=== PATIENT | female | born 1960 | race Caucasian/White ===

== ENCOUNTER 2023-09-08 21:36 | Inpatient (IN) | payer OTHER, SELFPAY ==
[2023-09-08 17:51] VITALS: BP 145/76
[2023-09-08 18:09] LABS: Hematocrit 35.8 % (37.0-47.0); Hemoglobin 12.1 g/dL (12.0-16.0); Mean Corp Hgb Conc. 33.8 g/dL (33.0-37.0); Mean Corpuscular Hgb 27.4 pg (27.0-31.0); Mean Corpuscular Volume 81.2 fL (81.0-99.0); Mean Platelet Volume 8.8 fL (7.4-10.4); Platelet Count 323 10^3/uL (130-400); Red Blood Cell Count 4.41 10^6/uL (4.20-5.40); Red Cell Dist. Width 14.3 % (11.5-14.5); White Blood Cell Count 15.8 10^3/uL (4.8-10.8)
[2023-09-08 18:24] LABS: ALT (SGPT) 30 U/L (0-35); AST (SGOT) 29 U/L (14-36); Albumin 4.2 g/dl (3.5-5.0); Alkaline Phosphatase 95 U/L (38-126); Blood Urea Nitrogen 54 mg/dl (7-17); Calcium 9.7 mg/dl (8.4-10.2); Carbon Dioxide 26 mmol/L (22-30); Chloride 97 mmol/L (98-107); Glucose 424 mg/dl (70-99); Potassium 4.4 mmol/L (3.5-5.1); Sodium 134 mmol/L (135-145); Total Bilirubin 0.4 mg/dl (0.2-1.3); Total Protein 6.8 g/dl (6.3-8.2); eGFR 38.67
[2023-09-08 18:25] LABS: Lipase 849 U/L (23-300)
[2023-09-08 18:26] VITALS: BMI 23.0
[2023-09-08 18:40] LABS: Lactic Acid 0.7 mmol/L (0.7-2.0)
[2023-09-08] MEDS: OFIRMEV 100 IV (18:46)
[2023-09-08] MEDS: MORPHINE SULFATE 4 MG IV (19:22)
[2023-09-08] MEDS: ZOFRAN 4 MG IV ×2 (19:22→23:01)
--- NOTE | 2023-09-08 19:44 | ED.GENMED ---
History of Present Illness
General
Chief Complaint: Abdominal Pain
Source: patient
Exam Limitations: none
Time Seen by Provider: 09/08/23 17:52
Nursing documentation reviewed up to this point in time: agreed with
Travel History
Have you had any contact with someone who has COVID-19?: No
Do you have any symptoms of coronavirus? Fever > 100 degrees, chills, cough, shortness of breath, sore throat, loss of taste or smell, muscle aches, or headache?: No
History of Present Illness
History of Present Illness:
Patient to ED with sudden onset of severe abdominal pain, abdominal distention. States she was unable to get self home, called EMS from side of road. New to this ED. Denies fever/chills. +nausea, no vomiting, no diarrhea
Past History
Past History
ED Past Medical History: HTN, Hypercholesterolemia, IDDM and Psychiatric (anxiety, deptression)
ED Past Surgical History: Appendectomy, Orthopedic (back surgery, neck surgery, bilateral carpal tunnel, shoulder ) and Other (Lap band)
Social History
Tobacco: Non-smoker
Alcohol: None
Drug: None
Review of Systems
Review of Systems
Allergies reviewed?: Yes
All Other Systems: ROS reviewed and negative except as documented in HPI and ROS
Constitutional: Reports no symptoms
EENT: Reports no symptoms
Respiratory: Reports no symptoms
Cardiac: Reports no symptoms
ABD/GI: Reports abdominal pain and nausea
: Reports no symptoms
Musculoskeletal: Reports no symptoms
Skin: Reports no symptoms
Neurological: Reports no symptoms
Psychiatric: Reports no symptoms
Phy Exam
General Physical Exam
General Presentation: moderate distress
General age: appears stated age
General Skin: warm and dry
General Habitus: normal
General Mental: alert, anxious and tearful
Cardiovascular Exam
Cardiovascular Exam: regular rate/rhythm and no edema
Pulmonary Exam
Pulmonary Exam: lungs clear and no respiratory distress
Gastrointestinal Exam
Gastrointestinal Exam: no pulsatile mass, no cva tenderness, distended, guarding and tender
Palpation: generalized: Severe tenderness
Musculoskeletal Exam
Musculoskeletal Exam: full ROM
Skin Exam
Skin Exam: normal color, warm/dry and no rash
Psychiatric Exam
Psychiatric Exam: normal mood/affect
Course
Orders/Labs/Results
Orders:
Orders
09/08/23 18:00
B-Hydroxybutyrate Urgent
Complete Blood Count/No Diff Urgent
Comprehensive Metabolic Panel Urgent
Lipase Urgent
09/08/23 18:20
Urinalysis Reflex To Culture Urgent
09/08/23 18:22
Lactic Acid Urgent
09/08/23 18:34
CT Abd/pel Without Iv Or Oral Urgent
Comment:
Reason For Exam: diffuse abdominal pain
09/08/23 18:45
Acetaminophen 1000MG/100Ml [Ofirmev] 1,000 mg in 100 ml .ROUTE .STK-MED
Acetaminophen 1000MG/100Ml [Ofirmev] 1,000 mg in 100 ml IV ONCE
Acetaminophen IV Indication:: ED Narcotic Naive Pt-ONCE
09/08/23 19:08
Morphine Sulfate 4 mg IV NOW STA
Ondansetron Injectable [Zofran] 4 mg IV NOW STA
09/08/23 20:41
Morphine Sulfate 2 mg IV NOW STA
09/08/23 20:50
EKG [Electrocardiogram (*1)] Stat
Reason for Study: QTc Monitoring
09/08/23 20:53
Admit/Transfer Patient As Directed
Co-Sign Provider:
Level of Care: Inpatient admission
Assign to:: Medical/Surgical
Physician / Group: jenn
Diagnosis: ileus
Reason for Hospitalization: ileus
Expected length of stay greater than two midnights?: Yes
ELOS- Estimated Length of Stay in days: 3
I certify the patient meets the requirements for IP care: Yes
09/08/23 21:02
Code Status As Directed
Resuscitation Status: Full Code
Abnormal Lab Results
09/08/23
18:00
WBC 15.8 H 10^3/uL
(4.8-10.8)
Hct 35.8 L %
(37.0-47.0)
Sodium 134 L mmol/L
(135-145)
Chloride 97 L mmol/L
(98-107)
BUN 54 H mg/dl
(7-17)
Creatinine 1.5 H mg/dL
(0.6-1.0)
Glucose 424 H mg/dl
(70-99)
Lipase 849 H U/L
(23-300)
09/08/23 18:00
09/08/23 18:00
Vital Signs
Initial and Last Documented VS:
Initial Vital Signs
Temp Pulse Resp BP Pulse Ox
98.4 F 95 18 145/76 97
09/08/23 17:51 09/08/23 17:51 09/08/23 17:51 09/08/23 17:51 09/08/23 17:51
Last Documented Vital Signs
Temp Pulse Resp BP Pulse Ox
98.4 F 95 18 145/76 97
09/08/23 17:51 09/08/23 17:51 09/08/23 17:51 09/08/23 17:51 09/08/23 17:51
*Radiology
Radiology exam reviewed: radiology read reviewed
*Pulse Oximetry
Patient hypoxic: no
*Critical Care Note
Total Time (30-74mins, 75-104mins- exclusive of procedures): Not Applicable
ED Attending Note
-
Portions of this chart may have been created with voice recognition software.� Occasional wrong word or��sound alike� substitutions may have occurred due to the inherent limitations of voice recognition software.
Discharge Plan
Departure
Patient Disposition: Admit
Date of Disposition: 09/08/23
Time of Disposition: 19:49
Presentation/result/management discussed w/ accepting MD/DO: Hospitalist
Condition: Fair
Covid-19: Not Applicable
Discharge Problem:
Ileus
Instructions: Abdominal Pain
Prescriptions:
No Action
furosemide 40 mg tablet
20 - 40 mg PO DAILY PRN (Reason: swelling)
atorvastatin 80 mg tablet
80 mg PO DAILY
venlafaxine 75 mg capsule,extended release 24hr
225 mg PO DAILY
aspirin 81 mg Tablet,Delayed Release (Dr/Ec)
81 mg PO DAILY
gabapentin 300 mg capsule
300 mg PO DAILY
losartan 100 mg tablet
100 mg PO DAILY
insulin aspart U-100 [Novolog FlexPen U-100 Insulin] 100 unit/mL (3 mL) insulin pen
3 unit SC AC
insulin degludec [Tresiba FlexTouch U-100] 100 unit/mL (3 mL) insulin pen
11 unit SC HS
Mounjaro 2.5 mg/0.5 mL pen injector
2.5 mg SC JUAN
fenofibrate 160 mg Tablet
160 mg PO DAILY
Patient Comments:
09/08/2023: Per 24hr [facility] last filled 05/23/22 and no refills
Interventions
Interventions:
*Risk Screen - Suicide Last Done: 09/08/23 18:26
*General Assessment Last Done: 09/08/23 19:18
*Neglect/Abuse Screening Last Done: 09/08/23 18:26
PU-Elzebn-Ztedxylxle Assessment Last Done: 09/08/23 18:25
Discharge Date and Time
Print Language: LITHUANIAN
--- NOTE | 2023-09-08 20:18 | HPS.HSE ---
Family Physician
-
Family Physician: Margarita Marti
Chief Complaint
-
abdominal pain
History of Present Illness
63 year old with PMH fot HTN, HLD, Dm, anxiety, depression presented to us with sudden onset of sharp abdominal pain associated with distention today. patient does have intermittent abdominal pain for past few months which resolved its own. she
vomited twice today. she had formed bowel movement yesterday. she does have occasional constipation. patient ate food from restaurant yesterday. denied fever, chills, chest pain, sob. denied CODY, dizzy or syncopal episode. denied dysuria or
hematuria.
CT with ileus/enteritis. received morphine, Zofran in the ER. admitting for further management.
Medical History
Past Medical History
Past Medical History: Reports Other
Additional Past Medical History:
HTN
HLD
DM
anxiety
depression
esophagus thickening
Past Surgical History: Reports Other
Additional Past Surgical History:
appendectomy
back/neck surgery
b/l carpel tunnel surgery
lap band
bunionectomy
shoulder tear surgery
cataract surgery
hysterectomy
Social History
Tobacco: Non-smoker
Alcohol: None
Drug: None
Living: With Family
Family History
Family History: Not pertinent
Allergies / Home Medications
Allergies reflects when Allergies were last updated in [employer].
Home Medications with original date entered in [employer]
Allergy/Medication List:
Allergies
Allergy/AdvReac Type Severity Reaction Status Date / Time
codeine Allergy Unknown Verified 09/08/23 17:48
Latex, Natural Rubber Allergy Unknown Verified 09/08/23 17:48
Home Medications
aspirin 81 mg tablet,delayed release 81 mg PO DAILY 09/08/23
atorvastatin 80 mg tablet 80 mg PO DAILY 09/08/23
fenofibrate 160 mg tablet 160 mg PO DAILY 09/08/23
furosemide 40 mg tablet 20 - 40 mg PO DAILY PRN swelling 09/08/23
gabapentin 300 mg capsule 300 mg PO DAILY 09/08/23
insulin aspart U-100 100 unit/mL (3 mL) subcutaneous pen (Novolog FlexPen U-100 Insulin aspart) 3 unit SC AC 09/08/23
insulin degludec 100 unit/mL (3 mL) subcutaneous pen (Tresiba FlexTouch U-100 insulin) 11 unit SC HS 09/08/23
losartan 100 mg tablet 100 mg PO DAILY 09/08/23
tirzepatide 2.5 mg/0.5 mL subcutaneous pen injector (Mounjaro) 2.5 mg SC JUAN 09/08/23
venlafaxine 75 mg capsule,extended release 24 hr 225 mg PO DAILY 09/08/23
Review of Systems
-
Constitutional: Reports No Symptoms
EENT: Reports No Symptoms
Respiratory: Reports No Symptoms
Cardiac: Reports No Symptoms
Abdomen/GI: Reports Abdominal Pain and Vomiting
: Reports No Symptoms
Musculoskeletal: Reports No Symptoms
Skin: Reports No Symptoms
Neurological: Reports No Symptoms
Endocrine: Reports No Symptoms
Hematologic/Lymphatic: Reports No Symptoms
Psych: Reports No Symptoms
Physical Exam
Vital Signs
Vital Signs
Temp Pulse Resp BP Pulse Ox
98.4 F 95 18 145/76 97
09/08/23 17:51 09/08/23 17:51 09/08/23 17:51 09/08/23 17:51 09/08/23 17:51
Physical Exam
General: Well Developed, Well Nourished and No Apparent Distress
HEENT: NormoCephalic, Moist mucous membranes and Atraumatic
Respiratory: Clear
Cardiac: S1/S2 and Regular Rhythm; No Murmur or Rub
GI: Soft, Tender and Distended; No Organomegaly
Rectal: Deferred by Provider
Musculoskeletal: No Clubbing, No Cyanosis and No Edema
Skin: No Rash
Neuro: AO x 3 and Nonfocal/grossly intact
Psych: Calm
Laboratory Results
-
09/08/23 18:00
09/08/23 18:00
Laboratory Results
Lactic Acid 0.7 mmol/L (0.7-2.0) 09/08/23 18:22
Total Bilirubin 0.4 mg/dl (0.2-1.3) 09/08/23 18:00
AST 29 U/L (14-36) 09/08/23 18:00
ALT 30 U/L (0-35) 09/08/23 18:00
Alkaline Phosphatase 95 U/L (38-126) 09/08/23 18:00
Lipase 849 U/L (23-300) H 09/08/23 18:00
Data Reviewed
-
CT Scan: Report Reviewed by me
Lab Data: Labs Reviewed by me
Impression/Plan
-
# Abdominal pain likely from ileus/enteritis
-Lipase to 849
-CT abdomen pelvis with impression of Findings suggesting mild nonspecific ileus/enteritis. Otherwise no significant acute abnormality identified in the abdomen or pelvis, within the limits of unenhanced CT, as described above.Lap Band noted in
place. There is moderate circumferential wall thickening of the distal thoracic esophagus, likely chronic esophagitis change. Moderate gastric distention with debris.Mild to moderate diffuse colonic stool burden may reflect constipation.
-NPO
-fluids continued
-Zofran prn for n/v
-morphine prn for pain
-GI consulted
# Leukocytosis likely stress reaction
-WBC 15.8,afebrile
-UA pending
-continue to trend
#chronic kidney disease state 3b
- creatinine 1.5 BUN 54
-monitor BMP in am
# Type 2 diabetes with hyperglycemia
-Glucose 424
-sliding scale
-Lantus 11units now
#HLD
-statin and fenofibrate continued
#type 2 Dm with hyperglycemia
-blood sugar elevated in 400's
-insulin sliding scale
-Lantus 11 units now
#essential htn
-BP stable in ER
-losartan continued
#depression
-venlafaxine continued
#DVT prophylaxis
-scd
#CODE status
-full code
[2023-09-08] MEDS: MORPHINE SULFATE 2 MG IV ×2 (20:47→23:00)
[2023-09-08 21:30] VITALS: BP 141/86
--- NOTE | 2023-09-08 21:34 | W.PN.UPDATE ---
Update Note
Progress Note Update
This is an addendum to the history and physical written by RODOLFO Alvarado on 09/08/2023.
Patient seen and examined independently with CORPORATE LEGAL INTERN. 63-year-old female past medical history gastric lap band 14 years ago, appendectomy a year ago, hysterectomy, diabetes, hypertension, hyperlipidemia, anxiety/depression, chronic kidney disease with
baseline creatinine of 1.5-1.6 presenting with severe abdominal pain particularly in the epigastric region and distention starting today with 2 episodes of vomiting. She has had intermittent abdominal pain for past few weeks. She did eat at a
restaurant yesterday. No sick contacts. She had a bowel movement yesterday but typically constipated with 1 bowel movement a week.
CT abdomen pelvis shows mild nonspecific ileus/enteritis. Lap-Band noted in place. There is moderate circumferential wall thickening of the distal thoracic esophagus with chronic esophagitis. There is moderate gastric distention with debris.
Mild to moderate diffuse colonic stool burden may reflect constipation.
N.p.o., IV fluids, Zofran, morphine for pain as needed. IV Protonix 40 twice daily. Start MiraLAX to prevent constipation. GI consulted. Bladder scan protocol as patient has not urinated in 5 hours. Continue 11 units Lantus, insulin sliding
scale.
[2023-09-08 22:01] LABS: Glucose - Point of Care 350 mg/dl (70-99)
[2023-09-08 22:11] VITALS: BP 148/88; BMI 26.6
[2023-09-08] MEDS: NSS 1000 IV (23:00)
--- NOTE | 2023-09-08 23:00 | PTCARENOTE ---
Patient admitted to room 410-2, ambulatory from stretcher to bed.. Patient is NPO. Abdomen distended, round and full. C/o abdominal pain of an '8'. Medicated with morphine and zofran IV as ordered prn. IVF infusing. Patient oriented to unit.
Instructed to ring for assistance first time out of bed, call griffin in reach.
[2023-09-08] MEDS: LANTUS 0.110000000000000001 UNITS SC (23:16)
[2023-09-09] MEDS: MORPHINE SULFATE 2 MG IV ×4 (05:00→23:42)
[2023-09-09] MEDS: ZOFRAN 4 MG IV (05:01)
[2023-09-09 05:55] LABS: Glucose - Point of Care 208 mg/dl (70-99)
[2023-09-09] MEDS: NOVOLOG FLEXPEN-MODERATE RESISTANCE 3 UNITS SC (06:15)
[2023-09-09 06:22] LABS: Urine Albumin Negative (Neg - Trace); Urine Bilirubin Negative (Negative); Urine Character Clear (Clear); Urine Color Yellow; Urine Glucose 1+ (Negative); Urine Ketone Negative (Negative); Urine Leukocyte 2+ (Negative); Urine Nitrite Negative (Negative); Urine Occult Blood Negative (Negative); Urine Specific Gravity 1.015 (<1.030); Urine Urobilinogen Negative (Neg - 1+)
[2023-09-09 06:43] LABS: Urine Bacteria Moderate (Negative); Urine White Cell 26-30 /HPF (0-5)
[2023-09-09 07:30] VITALS: BP 131/75
[2023-09-09 07:54] LABS: Hematocrit 34.3 % (37.0-47.0); Hemoglobin 11.1 g/dL (12.0-16.0); Mean Corp Hgb Conc. 32.4 g/dL (33.0-37.0); Mean Corpuscular Hgb 26.9 pg (27.0-31.0); Mean Corpuscular Volume 83.3 fL (81.0-99.0); Mean Platelet Volume 8.8 fL (7.4-10.4); Platelet Count 287 10^3/uL (130-400); Red Blood Cell Count 4.12 10^6/uL (4.20-5.40); Red Cell Dist. Width 14.6 % (11.5-14.5); White Blood Cell Count 13.8 10^3/uL (4.8-10.8)
[2023-09-09] MEDS: NEURONTIN 300 MG PO (07:54)
[2023-09-09] MEDS: COZAAR 100 MG PO (07:54)
[2023-09-09] MEDS: LIPITOR 80 MG PO (07:54)
[2023-09-09] MEDS: TRICOR 145 MG PO (07:55)
[2023-09-09] MEDS: ASPIR LOW (ENTERIC COATED) PO (08:11)
[2023-09-09] MEDS: HEPARIN SC (08:12)
[2023-09-09 08:23] LABS: Blood Urea Nitrogen 44 mg/dl (7-17); Calcium 9.6 mg/dl (8.4-10.2); Carbon Dioxide 32 mmol/L (22-30); Chloride 104 mmol/L (98-107); Estimated Creatinine Clearance 37 ml/min; Glucose 202 mg/dl (70-99); Lipase 1631 U/L (23-300); Potassium 4.9 mmol/L (3.5-5.1); Sodium 140 mmol/L (135-145); eGFR 50.55
[2023-09-09] MEDS: EFFEXOR XR 225 MG PO (09:10)
[2023-09-09] MEDS: TYLENOL 650 MG PO (09:10)
[2023-09-09 09:22] LABS: Glycohemoglobin (HgbA1c) 9.4 % (4.0-5.6)
[2023-09-09] MEDS: NSS 1000 IV ×2 (10:35→21:41)
[2023-09-09 10:51] LABS: Glucose - Point of Care 165 mg/dl (70-99)
--- NOTE | 2023-09-09 11:42 | W.PN.HOSP.TC ---
Today's Communication/Plan
-
see plan
Assessment / Plan
Assessment / Plan
63 year old with PMH fot HTN, HLD, Dm, anxiety, depression presented to us with sudden onset of sharp abdominal pain associated with distention
CT A/P
IMPRESSION:
1. Findings suggesting mild nonspecific ileus/enteritis. Otherwise no significant acute abnormality identified in the abdomen or pelvis, within the limits of unenhanced CT, as described above.
2. Lap Band noted in place. There is moderate circumferential wall thickening of the distal thoracic esophagus, likely chronic esophagitis change. Moderate gastric distention with debris.
3. Mild to moderate diffuse colonic stool burden may reflect constipation.
Pancreatitis with rising lipase
Abdominal Pain with findings of Ileus/Enteritis
-NPO
-fluids continued
-Zofran prn for n/v
-morphine prn for pain
-RUQ US to better assess for gallstones; add on liver enzymes this AM
-GI consult appreciated
Constipation
-bowel regimen
# Leukocytosis likely stress reaction
-WBC improvin today off antibiotics
#chronic kidney disease state 3b
- creatinine 1.5 BUN 54
-monitor BMP in am
# Type 2 diabetes with hyperglycemia
-Glucose 424 on admit
-continue 1/2 dose Lantus while NPO
#HLD
-statin and fenofibrate continued
#essential htn
-BP stable in ER
-losartan continued
#depression
-venlafaxine continued
#DVT prophylaxis
Hep subQ
#CODE status
-full code
Anticipated Discharge: 24 - 48 hours
Subjective/Interval History
-
Date of Service: September 09, 2023
continue to have abdominal pain
epigastric and left-sided
describes intermittent pain after eating over past month
Objective Data
-
Labs:
Laboratory Results
09/09/23
07:28
WBC 13.8 H
Hgb 11.1 L
Hct 34.3 L
Plt Count 287
Sodium 140
Potassium 4.9
Chloride 104
Carbon Dioxide 32 H
BUN 44 H
Creatinine 1.2 H
Glucose 202 H
Calcium 9.6
Vital Signs:
Vital Signs
Temp Pulse Resp BP Pulse Ox
98.3 F 78 16 131/75 96
09/09/23 07:30 09/09/23 07:54 09/09/23 07:30 09/09/23 07:54 09/09/23 07:30
I&O
09/08/23 09/09/23 09/10/23
06:59 06:59 06:59
Intake Total 550 / 550
Output Total 375 / 375
Balance 175 / 175
Review of Systems
-
History Source: Patient
All other systems: Reviewed and negative
Physical Exam
-
General: No Apparent Distress and Conversant
HEENT: PERRLA
Respiratory: Clear to Auscultation; Negative Wheezes
Cardiac: Regular Rhythm and S1/S2
GI: Other (tenderness midepigastric region, no rebound or guarding )
Musculoskeletal: No Edema
Skin: Warm and Dry; Negative Rash
Neuro: AO x 3
Psych: Calm
Data Reviewed
-
Diagnostic Radiology: Report Reviewed by me
Labs: Labs Reviewed by me
[2023-09-09 13:24] LABS: Glucose - Point of Care 138 mg/dl (70-99)
[2023-09-09] MEDS: NOVOLOG FLEXPEN-MODERATE RESISTANCE SC ×3 (13:33→23:23)
[2023-09-09] MEDS: MIRALAX 17 GRAMS PO ×3 (13:37→21:44)
[2023-09-09] MEDS: PEPCID 20 MG IV (13:41)
[2023-09-09] MEDS: NSS (PRESERVATIVE FREE) 8 ML IV (13:44)
--- NOTE | 2023-09-09 14:19 | CON.GI ---
Addendum entered and electronically signed by Winnie Lassiter DO 09/26/23 07:31:
For clarification purposes, patient was treated for ileus and enteritis, although meeting diagnostic criteria for acute pancreatitis, this was thought to be less likely.
Original Note:
Consultation
-
Date/Time Consultation Requested: 09/09/23
Date/Time Consultation Performed: 09/09/23
Requesting Provider: Dr. Rivas
Performing Provider: Dr. Lassiter
Reason for Consultation: Abdominal pain, abnormal CT scan
Medical History
Chief Complaint / HPI
Chief Complaint: abdominal pain
History of Present Illness:
Dorota is a 63-year-old female past medical history of hyperlipidemia, diabetes, hypertension, anxiety, depression, hx appendectomy, hx hysterectomy, CKD (b/l Cr. 1.5) who presented to [facility] with acute onset abdominal pain and
distention x 1 day. She also endorses 2 episodes of emesis. She denies tobacco, alcohol or illicit drug use. She denies NSAID use. Denies recent antibiotic use or sick contacts. She reports having a recent colonoscopy in [place] ([facility]).
She had an EGD at that same time, was told she has a 'narrow' esophagus. She denies any dysphagia, odynophagia or globus/regurgitation regularly, states it was just 'routine.' Reports she was given a 10 year recall for her colonoscopy. She denies
family history of GI malignancy.
Labs on arrival were significant for leukocytosis with a white count of 15.8 that improved to 13.8 today, hemoglobin 12.1 down to 11.1 today, MCV 83.3, platelets 287, BUN 44, creatinine 1.2, lipase 1631.
CT scan without IV or oral contrast shows Lap-Band in place. Moderate circumferential wall thickening of the distal thoracic esophagus. Moderate gastric distention with debris. Slightly prominent air and fluid-filled small bowel loops throughout
the abdomen. The bowel is without evidence of obstruction or adjacent laboratory changes. Mild to moderate diffuse colonic stool burden. Findings suggesting mild nonspecific ileus and enteritis.
Past Medical History
Past Medical History: HTN, Hypercholesterolemia, NIDDM and Psychiatric
Past Surgical History: Appendectomy and Gynecological
Social History
Tobacco: Non-Smoker
Alcohol: None
Drug: None
Living: Alone
Employment: Employed
Family History
Family History: Reviewed & Not Pertinent
Allergies / Home Medications
Allergy/AdvReac Type Severity Reaction Status Date / Time
codeine Allergy Unknown Verified 09/08/23 17:48
Latex, Natural Rubber Allergy Unknown Verified 09/08/23 17:48
�Medication �Instructions �Recorded
aspirin 81 mg tablet,delayed 81 mg PO DAILY Blood Clot 09/08/23
release Prevention/Tx
atorvastatin 80 mg tablet 80 mg PO DAILY High Cholesterol 09/08/23
fenofibrate 160 mg tablet 160 mg PO DAILY HIGH TRIGLYCERIDES 09/08/23
furosemide 40 mg tablet 20 - 40 mg PO DAILY PRN swelling 09/08/23
gabapentin 300 mg capsule 300 mg PO DAILY Pain 09/08/23
insulin aspart U-100 100 unit/mL 3 unit SC AC Diabetes 09/08/23
(3 mL) subcutaneous pen (Novolog
FlexPen U-100 Insulin aspart)
insulin degludec 100 unit/mL (3 11 unit SC HS Diabetes 09/08/23
mL) subcutaneous pen (Tresiba
FlexTouch U-100 insulin)
losartan 100 mg tablet 100 mg PO DAILY Blood Pressure 09/08/23
tirzepatide 2.5 mg/0.5 mL 2.5 mg SC JUAN Diabetes 09/08/23
subcutaneous pen injector
(Mounjaro)
venlafaxine 75 mg capsule,extended 225 mg PO DAILY Mental 09/08/23
release 24 hr Health/Anxiety
Review of Systems
-
History Source: Patient
All other systems: A 12 pt ROS was Negative except as stated above in HPI
Vital Signs
Temp Pulse Resp BP Pulse Ox
98.3 F 78 16 131/75 96
09/09/23 07:30 09/09/23 07:54 09/09/23 07:30 09/09/23 07:54 09/09/23 07:30
Physical Exam
Exam
GENERAL: In no acute distress, appears comfortable
HEENT: no scleral icterus, mucous membranes moist, OP clear
RESP: Nonlabored respirations, clear to ausculation, b/l
CV: RRR, S1/S2
ABDOMEN: +BS;soft, nondistended, tender to deep palpation in epigastric and RUQ area, ,no rebound or guarding
EXT: No LE edema, b/l
SKIN: Dry, warm
NEURO: AAOx3
Results
WBC 13.8 10^3/uL (4.8-10.8) H 09/09/23 07:28
Hgb 11.1 g/dL (12.0-16.0) L 09/09/23 07:28
Hct 34.3 % (37.0-47.0) L 09/09/23 07:28
MCV 83.3 fL (81.0-99.0) 09/09/23 07:28
Plt Count 287 10^3/uL (130-400) 09/09/23 07:28
Sodium 140 mmol/L (135-145) 09/09/23 07:28
Potassium 4.9 mmol/L (3.5-5.1) 09/09/23 07:28
Chloride 104 mmol/L (98-107) 09/09/23 07:28
Carbon Dioxide 32 mmol/L (22-30) H 09/09/23 07:28
BUN 44 mg/dl (7-17) H 09/09/23 07:28
Creatinine 1.2 mg/dL (0.6-1.0) H 09/09/23 07:28
Calcium 9.6 mg/dl (8.4-10.2) 09/09/23 07:28
Total Bilirubin 0.4 mg/dl (0.2-1.3) 09/08/23 18:00
AST 29 U/L (14-36) 09/08/23 18:00
ALT 30 U/L (0-35) 09/08/23 18:00
Alkaline Phosphatase 95 U/L (38-126) 09/08/23 18:00
Lipase 1631 U/L (23-300) H* 09/09/23 07:28
Diagnostic Image Results:
Prior GI Procedures:
EGD:
Colonoscopy:
Assessment / Plan
-
63-year-old female past medical history of hyperlipidemia, diabetes, hypertension, anxiety, depression, hx appendectomy, hx hysterectomy, CKD (b/l Cr. 1.5) admitted with acute onset abdominal pain with N/V and change in bowel habits, found to have
elevated lipase with imaging c/f enteritis/ileitis, large stool burden.
RUQ Abdominal Pain + Elevated Lipase meets clinical criteria for Acute Pancreatitis
-CT scan w/o IV or oral contrast, reports normal appearing pancreas; some of the GI findings may be due to underdistension
-Lipase elevated to 1631
-Recommend IVF @ 150 cc/hr
-Monitor BUN and Hct; BUN 54 --> 44
-Suspect pancreatitis could be causing inflammation in adjacent small bowel as well as ileus
-start bowel regimen with Miralax TID + Enema
-Clear liquids
-Analgesia, antiemetics
-f/u US-- etiology of pancreatitis unclear at this time, denies EtoH
Data Reviewed
-
CT Scan: Report Reviewed by me
-
-
Thank you for consultation and allowing me to participate in the patient's care. Please call the conductor and engineer GI physician during the after hours with any questions or concerns.
[2023-09-09 14:56] LABS: ALT (SGPT) 30 U/L (0-35); AST (SGOT) 25 U/L (14-36); Alkaline Phosphatase 86 U/L (38-126); Total Bilirubin 0.3 mg/dl (0.2-1.3)
[2023-09-09 15:15] VITALS: BP 140/71
[2023-09-09] MEDS: FLEET MINERAL OIL ENEMA 133 ML RECTAL (15:34)
--- NOTE | 2023-09-09 15:54 | CM ---
CM met with pt bedside
Pt resides a mobile home, [employer]
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
Pt denies use of DMEs
Pt notes difficulties with bills and food security
Does not have computer- hard list of resources placed in dc folder per her request
Dtr local and available for support as needed
PCP- Margarita Marti
Rx- [facility]
Discharge Disposition- home, no needs anticipated
[2023-09-09 17:59] LABS: Glucose - Point of Care 95 mg/dl (70-99)
[2023-09-09] MEDS: HEPARIN 5000 UNITS SC (19:49)
[2023-09-09] MEDS: NSS (PRESERVATIVE FREE) IV (21:44)
[2023-09-09 22:28] LABS: Glucose - Point of Care 81 mg/dl (70-99)
[2023-09-09] MEDS: LANTUS SC (22:34)
[2023-09-09 23:00] LABS: Glucose - Point of Care 103 mg/dl (70-99)
[2023-09-09 23:07] VITALS: BP 117/74
[2023-09-10] VITALS (10 sets, daily range): BP systolic 102–145; BP diastolic 60–81
--- NOTE | 2023-09-10 03:06 | DOWNTIME ---
There was a [employer] Client Disease Management Nurse Downtime on 08/13/2023 from 0100 to 08/13/2023 at 0439. Downtime documentation of patient's care, including medication administrations, has been reconciled in the electronic record per guidelines. Refer to the
patient's paper chart under the miscellaneous tab to see printed paper medication records and downtime forms.
[2023-09-10] MEDS: NSS 1000 IV (05:27)
[2023-09-10] MEDS: MORPHINE SULFATE 2 MG IV (05:38)
[2023-09-10 05:48] LABS: Glucose - Point of Care 90 mg/dl (70-99)
[2023-09-10] MEDS: NOVOLOG FLEXPEN-MODERATE RESISTANCE SC ×3 (05:59→18:27)
[2023-09-10 06:12] LABS: % Basophils 0.2 % (0-2); % Eosinophils 1.4 % (0-6); % Immature Granulocytes 0.8 % (0-0.5); % Lymphocytes 20.3 % (20.5-51.1); % Monocytes 6.9 % (1.7-9.3); % Neutrophils 70.4 % (42.2-75.2); Absolute Eosinophils 0.1 10^3/uL (0-0.7); Absolute Immature Granulocytes 0.1 10^3/uL (0-0.05); Absolute Lymphocytes 1.7 10^3/uL (1.2-3.4); Absolute Monocytes 0.6 10^3/uL (0.1-0.6); Absolute Neutrophils 5.9 10^3/uL (1.4-6.5); Hematocrit 30.5 % (37.0-47.0); Mean Corp Hgb Conc. 32.8 g/dL (33.0-37.0); Mean Corpuscular Hgb 27.3 pg (27.0-31.0); Mean Corpuscular Volume 83.3 fL (81.0-99.0); Nucleated Red Blood Cells % 0 %; Platelet Count 248 10^3/uL (130-400); Red Blood Cell Count 3.66 10^6/uL (4.20-5.40); Red Cell Dist. Width 14.6 % (11.5-14.5); White Blood Cell Count 8.4 10^3/uL (4.8-10.8)
[2023-09-10 06:37] LABS: ALT (SGPT) 24 U/L (0-35); AST (SGOT) 21 U/L (14-36); Albumin 2.9 g/dl (3.5-5.0); Alkaline Phosphatase 67 U/L (38-126); Blood Urea Nitrogen 26 mg/dl (7-17); Calcium 9.2 mg/dl (8.4-10.2); Carbon Dioxide 28 mmol/L (22-30); Chloride 109 mmol/L (98-107); Estimated Creatinine Clearance 50 ml/min; Glucose 90 mg/dl (70-99); Lipase 183 U/L (23-300); Potassium 4.8 mmol/L (3.5-5.1); Sodium 140 mmol/L (135-145); Total Bilirubin 0.4 mg/dl (0.2-1.3); Total Protein 5.3 g/dl (6.3-8.2); eGFR > 60.00
[2023-09-10] MEDS: MIRALAX 17 GRAMS PO (08:06)
[2023-09-10] MEDS: NEURONTIN 300 MG PO (08:07)
[2023-09-10] MEDS: ASPIR LOW (ENTERIC COATED) 81 MG PO (08:07)
[2023-09-10] MEDS: LIPITOR 80 MG PO (08:07)
[2023-09-10] MEDS: TRICOR 145 MG PO (08:07)
[2023-09-10] MEDS: COZAAR 100 MG PO (08:07)
[2023-09-10] MEDS: EFFEXOR XR 225 MG PO (08:08)
[2023-09-10] MEDS: HEPARIN 5000 UNITS SC ×2 (08:09→20:04)
--- NOTE | 2023-09-10 11:52 | W.PN.HOSP.TC ---
Today's Communication/Plan
-
see plan
Assessment / Plan
Assessment / Plan
63 year old with PMH fot HTN, HLD, Dm, anxiety, depression presented to us with sudden onset of sharp abdominal pain associated with distention
CT A/P
IMPRESSION:
1. Findings suggesting mild nonspecific ileus/enteritis. Otherwise no significant acute abnormality identified in the abdomen or pelvis, within the limits of unenhanced CT, as described above.
2. Lap Band noted in place. There is moderate circumferential wall thickening of the distal thoracic esophagus, likely chronic esophagitis change. Moderate gastric distention with debris.
3. Mild to moderate diffuse colonic stool burden may reflect constipation.
RUQ US
IMPRESSION:
1. No evidence of cholelithiasis, acute cholecystitis, or biliary ductal dilation.
2. Gastric band was partially visualized within the upper abdomen.
3. Pancreas was not well seen due to overlying bowel.
EGD 09/10/23
Impression: - The procedure was aborted due to copious amounts of
food in the small bowel, unable to clear.
- White specked mucosa in the esophagus. Biopsied.
- 2 cm hiatal hernia.
- A large amount of food (residue) in the stomach.
- Erythematous mucosa in the prepyloric region of the
stomach. Biopsied. Clip was placed. Clip director facilities maintenance:
[employer].
- Retained food in the duodenum.
Recommendation: - Return patient to hospital reich for ongoing care.
- Gastroparesis diet.
- Continue present medications.
- Suspect imaging findings, albeit, limited due to
lack of both PO and IV contrast as well as symptoms
are 2/2 dysmotility and gastroparesis-type picture in
setting of Mounjaro use. Small bowel inflammation seen
on imaging could be due to food stasis, unable to
fully visualize mucosa. Recommend drug holiday and
repeat EGD as outpatient.
- Await pathology results. If esophageal biopsies
return positive, recommend treatment with 14 day
course of Fluconazole.
Abdominal Pain with findings of Ileus/Enteritis
Elevated Lipase
Constipation
-appreciate GI consult
-s/p EGD with results above, findings of gastroparesis in setting of recent initiation Mounjaro
-patient ordered for gastroparesis diet
-plan for holiday from Mounjaro use
-bowel regimen
# Leukocytosis likely stress reaction
-WBC improving and now resolved today off antibiotics
#chronic kidney disease state 3b
- creatinine 1.5 BUN 54
-monitor BMP in am
# Type 2 diabetes with hyperglycemia
-Glucose 424 on admit
-left message for patient's instrument lens grinder apprentice, Dr. Lovett per patient's request
-hold Mounjaro
-continue Tresiba 11 units qhs; will increase pre-meal insulin at discharge given elevated A1c
#HLD
-statin and fenofibrate continued
#essential htn
-BP stable in ER
-losartan continued
#depression
-venlafaxine continued
#DVT prophylaxis
Hep subQ
#CODE status
-full code
Anticipated Discharge: 24 - 48 hours
Subjective/Interval History
-
Date of Service: September 10, 2023
seen post EGD
still no bowel movement
Objective Data
-
Labs:
Laboratory Results
09/10/23
05:28
WBC 8.4
Hgb 10.0 L
Hct 30.5 L
Plt Count 248
Sodium 140
Potassium 4.8
Chloride 109 H
Carbon Dioxide 28
BUN 26 H
Creatinine 0.9
Glucose 90
Calcium 9.2
Total Bilirubin 0.4
AST 21
ALT 24
Alkaline Phosphatase 67
Vital Signs:
Vital Signs
Temp Pulse Resp BP Pulse Ox
98.9 F 67 16 132/72 98
09/10/23 07:55 09/10/23 07:55 09/10/23 07:55 09/10/23 07:55 09/10/23 07:55
I&O
09/09/23 09/10/23 09/11/23
06:59 06:59 06:59
Intake Total 550 / 550 120 / 120
Output Total 375 / 375
Balance 175 / 175 120 / 120
Review of Systems
-
History Source: Patient
All other systems: Reviewed and negative
Physical Exam
-
General: No Apparent Distress
HEENT: PERRLA
Respiratory: Clear to Auscultation; Negative Wheezes
Cardiac: S1/S2
GI: Distended
Musculoskeletal: No Edema
Skin: Warm and Dry; Negative Rash
Neuro: AO x 3
Psych: Calm
Data Reviewed
-
Diagnostic Radiology: Report Reviewed by me
Labs: Labs Reviewed by me
[2023-09-10] MEDS: FLEET MINERAL OIL ENEMA RECTAL (11:55)
[2023-09-10 12:50] LABS: Glucose - Point of Care 46 mg/dl (70-99)
[2023-09-10] MEDS: DEXTROSE 50% SYRINGE 12.5 GRAMS IV (12:59)
[2023-09-10 13:27] LABS: Glucose - Point of Care 89 mg/dl (70-99)
[2023-09-10 13:54] LABS: Glucose - Point of Care 87 mg/dl (70-99)
--- NOTE | 2023-09-10 15:28 | CM ---
met with patient at bedside,egd aborted due to patient not being cleaned out,gi recs egd as op,monitoring cr,wbc 5.5 off abx.
Plan:discharge home with no needs.
[2023-09-10] MEDS: CITROMA 300 ML PO (15:53)
[2023-09-10] MEDS: MIRALAX PO ×2 (16:24→22:01)
[2023-09-10 17:51] LABS: Glucose - Point of Care 76 mg/dl (70-99)
[2023-09-10] MEDS: NOVOLOG FLEXPEN SC (18:27)
[2023-09-10 21:20] LABS: Glucose - Point of Care 125 mg/dl (70-99)
[2023-09-10] MEDS: PEPCID 20 MG IV (21:52)
[2023-09-10] MEDS: NSS (PRESERVATIVE FREE) 8 ML IV (21:52)
[2023-09-10] MEDS: LANTUS 0.0500000000000000028 UNITS SC (22:00)
[2023-09-11] MEDS: NOVOLOG FLEXPEN-MODERATE RESISTANCE SC ×2 (00:01→11:22)
[2023-09-11 01:23] LABS: Glucose - Point of Care 143 mg/dl (70-99)
[2023-09-11 05:31] LABS: Hematocrit 32.2 % (37.0-47.0); Hemoglobin 10.3 g/dL (12.0-16.0); Mean Corpuscular Volume 84.5 fL (81.0-99.0); Platelet Count 234 10^3/uL (130-400); Red Blood Cell Count 3.81 10^6/uL (4.20-5.40); Red Cell Dist. Width 14.4 % (11.5-14.5)
[2023-09-11 05:55] LABS: Blood Urea Nitrogen 23 mg/dl (7-17); Calcium 9.3 mg/dl (8.4-10.2); Carbon Dioxide 30 mmol/L (22-30); Chloride 104 mmol/L (98-107); Estimated Creatinine Clearance 50 ml/min; Glucose 238 mg/dl (70-99); Lipase 229 U/L (23-300); Potassium 4.7 mmol/L (3.5-5.1); Sodium 138 mmol/L (135-145); eGFR > 60.00
[2023-09-11 06:06] LABS: Glucose - Point of Care 240 mg/dl (70-99)
[2023-09-11] MEDS: NOVOLOG FLEXPEN-MODERATE RESISTANCE 3 UNITS SC ×2 (06:30→16:51)
[2023-09-11 07:55] VITALS: BP 131/80
[2023-09-11 07:58] LABS: Glucose - Point of Care 139 mg/dl (70-99)
[2023-09-11] MEDS: TYLENOL 650 MG PO ×2 (08:15→14:58)
[2023-09-11] MEDS: HEPARIN 5000 UNITS SC ×2 (08:17→19:49)
[2023-09-11] MEDS: EFFEXOR XR 225 MG PO (08:18)
[2023-09-11] MEDS: NEURONTIN 300 MG PO (08:18)
[2023-09-11] MEDS: LIPITOR 80 MG PO (08:19)
[2023-09-11] MEDS: ASPIR LOW (ENTERIC COATED) 81 MG PO (08:19)
[2023-09-11] MEDS: COZAAR 100 MG PO (08:19)
[2023-09-11] MEDS: TRICOR 145 MG PO (08:19)
[2023-09-11] MEDS: MIRALAX 17 GRAMS PO ×3 (08:19→21:38)
[2023-09-11] MEDS: NOVOLOG FLEXPEN 3 UNITS SC (08:20)
[2023-09-11] MEDS: FLEET MINERAL OIL ENEMA 133 ML RECTAL (10:21)
[2023-09-11 10:56] LABS: Glucose - Point of Care 59 mg/dl (70-99)
[2023-09-11] MEDS: NOVOLOG FLEXPEN SC (11:03)
[2023-09-11 11:14] LABS: Glucose - Point of Care 61 mg/dl (70-99)
[2023-09-11 11:30] LABS: Glucose - Point of Care 53 mg/dl (70-99)
[2023-09-11 11:53] LABS: Glucose - Point of Care 125 mg/dl (70-99)
--- NOTE | 2023-09-11 12:10 | PN.CDI ---
CDI
- -
CDI:
Physician Documentation Request
Admit Date: 09/08/23 21:36
Dear Doctor Evelyn,
Clinical Indicators:
Patient admitted with ileus/enteritis.
CKD 3b documented.
Cr/GFR trend:
09/08/23 09/09/23 09/10/23
18:00 07:28 05:28
Creatinine 1.5 H 1.2 H 0.9
eGFR 38.67 50.55 > 60.00
Please clarify which of the following accurately represents the patient's renal status:
SAIRA
SAIRA on CKD 3b
CKD 3b only
Other, please specify
Criteria for SAIRA*
1 Increase in serum creatinine by > or = to 0.3 mg/dL (> or = to 26.5 micromol/L) within 48 hours, OR
2 Increase in serum creatinine to > or = to 1.5 times baseline, which is known or presumed to have occurred within 7 days, OR
3 Urine volume < 0.5 nL/kg/hour for six hours
Stages of Chronic Kidney Disease*
Level Description GFR
G1 Normal or High >90
G2 Mildly decreased 60-89
G3a Mildly to moderately decreased 45-59
G3b Moderately to severely decreased 30-44
G4 Severely decreased 15-29
G5 Kidney failure <15
Use of terms such as suspected, likely, concern for, or probable (associated with a specific diagnosis that is being evaluated, monitored, or treated as if it exists) are acceptable and can be coded in the inpatient setting, when documented at the
time of discharge.
Thank you,
MACKENZIE Andrews RN
CDI Specialist
available via tiger text
Please use your independent medical judgment in providing your response.
*Source: Kidney Disease: Improving Global Outcomes (KDIGO) 2012
--- NOTE | 2023-09-11 12:13 | W.PN.HOSP.TC ---
Today's Communication/Plan
-
bowel regimen
clears
F/U further GI recs
Assessment / Plan
Assessment / Plan
63 year old with PMH fot HTN, HLD, Dm, anxiety, depression presented to us with sudden onset of sharp abdominal pain associated with distention
CT A/P
IMPRESSION:
1. Findings suggesting mild nonspecific ileus/enteritis. Otherwise no significant acute abnormality identified in the abdomen or pelvis, within the limits of unenhanced CT, as described above.
2. Lap Band noted in place. There is moderate circumferential wall thickening of the distal thoracic esophagus, likely chronic esophagitis change. Moderate gastric distention with debris.
3. Mild to moderate diffuse colonic stool burden may reflect constipation.
RUQ US
IMPRESSION:
1. No evidence of cholelithiasis, acute cholecystitis, or biliary ductal dilation.
2. Gastric band was partially visualized within the upper abdomen.
3. Pancreas was not well seen due to overlying bowel.
EGD 09/10/23
Impression: - The procedure was aborted due to copious amounts of
food in the small bowel, unable to clear.
- White specked mucosa in the esophagus. Biopsied.
- 2 cm hiatal hernia.
- A large amount of food (residue) in the stomach.
- Erythematous mucosa in the prepyloric region of the
stomach. Biopsied. Clip was placed. Clip x ray technician:
[employer].
- Retained food in the duodenum.
Recommendation: - Return patient to hospital reich for ongoing care.
- Gastroparesis diet.
- Continue present medications.
- Suspect imaging findings, albeit, limited due to
lack of both PO and IV contrast as well as symptoms
are 2/2 dysmotility and gastroparesis-type picture in
setting of Mounjaro use. Small bowel inflammation seen
on imaging could be due to food stasis, unable to
fully visualize mucosa. Recommend drug holiday and
repeat EGD as outpatient.
- Await pathology results. If esophageal biopsies
return positive, recommend treatment with 14 day
course of Fluconazole.
Abdominal Pain with findings of Ileus/Enteritis
Elevated Lipase
Constipation
-appreciate GI consult
-s/p EGD with results above, findings of gastroparesis in setting of recent initiation Mounjaro
-patient ordered for gastroparesis diet
-plan for holiday from Mounjaro use
-bowel regimen
-persistent pain will place on clears
-F/U further GI recs
# Leukocytosis likely stress reaction
-WBC resolved off antibiotics
#chronic kidney disease state 3b
- creatinine 1.5 BUN 54
-monitor BMP in am
# Type 2 diabetes with hyperglycemia
-Glucose 424 on admit
-left message for patient's associate professor of chemistry, Dr. Lovett per patient's request
-hold Mounjaro
-lantus lower dosing qhs
-hypoglycemic this morning - stop standing aspart
#HLD
-statin and fenofibrate continued
#essential htn
-BP stable in ER
-losartan continued
#depression
-venlafaxine continued
#DVT prophylaxis
Hep subQ
#CODE status
-full code
Anticipated Discharge: 24 - 48 hours
Subjective/Interval History
-
Date of Service: September 11, 2023
she is continuing to have pain
states 15 minutes after eating
Objective Data
-
Labs:
Laboratory Results
09/11/23
05:03
WBC 7.0
Hgb 10.3 L
Hct 32.2 L
Plt Count 234
Sodium 138
Potassium 4.7
Chloride 104
Carbon Dioxide 30
BUN 23 H
Creatinine 0.9
Glucose 238 H
Calcium 9.3
Vital Signs:
Vital Signs
Temp Pulse Resp BP Pulse Ox
98.1 F 65 16 131/80 100
09/11/23 07:55 09/11/23 07:55 09/11/23 07:55 09/11/23 07:55 09/11/23 07:55
I&O
09/10/23 09/11/23 09/12/23
06:59 06:59 06:59
Intake Total 120 / 120 480 / 480
Balance 120 / 120 480 / 480
Review of Systems
-
History Source: Patient
All other systems: Reviewed and negative
Physical Exam
-
General: No Apparent Distress
HEENT: PERRLA
Respiratory: Clear to Auscultation; Negative Wheezes
Cardiac: S1/S2
GI: Distended
Musculoskeletal: No Edema
Skin: Warm and Dry; Negative Rash
Neuro: AO x 3
Psych: Calm
Data Reviewed
-
Diagnostic Radiology: Report Reviewed by me
Labs: Labs Reviewed by me
[2023-09-11] MEDS: PROTONIX IV 40 MG IV ×2 (12:50→19:50)
[2023-09-11] MEDS: NSS (PRESERVATIVE FREE) 10 ML IV ×2 (12:50→19:50)
--- NOTE | 2023-09-11 13:12 | PTCARENOTE ---
Pt ambulating in the hallway, this RN noticed pt was a little unsteady and leaning against wall, Went to assess pt and pt felt like she was going to fall over, able to get back to room and in bed with staff member on each side. Pt vitals assessed
WNL. Pt said she didnt feel dizzy but ' my legs gave out' pt reports this happens at home. Blood sugar checked with results of 59. Blood sugar reevaluated per protocol and finally came up to 125. Pt conversive and talkative throughout whole
hypoglycemic event, updated, plan of care continues.
[2023-09-11 14:36] LABS: Glucose - Point of Care 290 mg/dl (70-99)
[2023-09-11 15:54] VITALS: BP 135/74
[2023-09-11 16:34] LABS: Glucose - Point of Care 275 mg/dl (70-99)
[2023-09-11 19:49] LABS: Glucose - Point of Care 273 mg/dl (70-99)
[2023-09-11 21:35] LABS: Glucose - Point of Care 209 mg/dl (70-99)
[2023-09-11] MEDS: PEPCID 20 MG IV (21:38)
[2023-09-11] MEDS: NSS (PRESERVATIVE FREE) 8 ML IV (21:38)
[2023-09-11] MEDS: LANTUS 0.0500000000000000028 UNITS SC (21:38)
[2023-09-11 23:44] VITALS: BP 135/73
[2023-09-12 03:07] LABS: Glucose - Point of Care 174 mg/dl (70-99)
--- NOTE | 2023-09-12 05:17 | PTCARENOTE ---
Pt came out to hallway and expressed frustration with continued hospitalization and not improving and states that she wants to be discharged today. Encouraged pt to discuss concerns with physician in am.
[2023-09-12 05:24] LABS: Hemoglobin 10.2 g/dL (12.0-16.0); Mean Corp Hgb Conc. 32.9 g/dL (33.0-37.0); Mean Corpuscular Hgb 26.9 pg (27.0-31.0); Mean Corpuscular Volume 81.8 fL (81.0-99.0); Mean Platelet Volume 8.6 fL (7.4-10.4); Platelet Count 232 10^3/uL (130-400); Red Blood Cell Count 3.79 10^6/uL (4.20-5.40); Red Cell Dist. Width 14.3 % (11.5-14.5); White Blood Cell Count 6.6 10^3/uL (4.8-10.8)
[2023-09-12 06:05] LABS: Blood Urea Nitrogen 20 mg/dl (7-17); Calcium 9.8 mg/dl (8.4-10.2); Carbon Dioxide 31 mmol/L (22-30); Chloride 105 mmol/L (98-107); Estimated Creatinine Clearance 45 ml/min; Glucose 159 mg/dl (70-99); Potassium 5.3 mmol/L (3.5-5.1); Sodium 139 mmol/L (135-145); eGFR > 60.00
[2023-09-12 07:40] VITALS: BP 141/71
[2023-09-12 07:49] LABS: Glucose - Point of Care 156 mg/dl (70-99)
[2023-09-12 08:16] VITALS: BP 141/71
[2023-09-12] MEDS: NOVOLOG FLEXPEN-MODERATE RESISTANCE 1 UNITS SC ×2 (08:54→17:00)
[2023-09-12] MEDS: HEPARIN 5000 UNITS SC ×2 (08:55→20:15)
[2023-09-12] MEDS: NEURONTIN 300 MG PO (08:55)
[2023-09-12] MEDS: ASPIR LOW (ENTERIC COATED) 81 MG PO (08:55)
[2023-09-12] MEDS: EFFEXOR XR 225 MG PO (08:55)
[2023-09-12] MEDS: TRICOR 145 MG PO (08:55)
[2023-09-12] MEDS: COZAAR 100 MG PO (08:55)
[2023-09-12] MEDS: LIPITOR 80 MG PO (08:56)
[2023-09-12] MEDS: PROTONIX IV 40 MG IV ×2 (08:56→20:16)
[2023-09-12] MEDS: FLEET MINERAL OIL ENEMA 133 ML RECTAL (08:56)
[2023-09-12] MEDS: NSS (PRESERVATIVE FREE) 10 ML IV ×2 (08:56→20:16)
[2023-09-12] MEDS: MIRALAX 17 GRAMS PO ×3 (08:56→21:58)
[2023-09-12] MEDS: FLUSH (NSS) 2 FLUSH IV (08:57)
[2023-09-12] MEDS: TYLENOL 650 MG PO (09:07)
--- NOTE | 2023-09-12 11:19 | W.PN.HOSP.TC ---
Today's Communication/Plan
-
advance to fulls
aggressive bowel regimen
appreciate GI (discussed case with LAUNDRY EQUIPMENT OPERATOR this morning)
Assessment / Plan
Assessment / Plan
63 year old with PMH fot HTN, HLD, Dm, anxiety, depression presented to us with sudden onset of sharp abdominal pain associated with distention
CT A/P
IMPRESSION:
1. Findings suggesting mild nonspecific ileus/enteritis. Otherwise no significant acute abnormality identified in the abdomen or pelvis, within the limits of unenhanced CT, as described above.
2. Lap Band noted in place. There is moderate circumferential wall thickening of the distal thoracic esophagus, likely chronic esophagitis change. Moderate gastric distention with debris.
3. Mild to moderate diffuse colonic stool burden may reflect constipation.
RUQ US
IMPRESSION:
1. No evidence of cholelithiasis, acute cholecystitis, or biliary ductal dilation.
2. Gastric band was partially visualized within the upper abdomen.
3. Pancreas was not well seen due to overlying bowel.
EGD 09/10/23
Impression: - The procedure was aborted due to copious amounts of
food in the small bowel, unable to clear.
- White specked mucosa in the esophagus. Biopsied.
- 2 cm hiatal hernia.
- A large amount of food (residue) in the stomach.
- Erythematous mucosa in the prepyloric region of the
stomach. Biopsied. Clip was placed. Clip control clerk repairs:
[employer].
- Retained food in the duodenum.
Recommendation: - Return patient to hospital reich for ongoing care.
- Gastroparesis diet.
- Continue present medications.
- Suspect imaging findings, albeit, limited due to
lack of both PO and IV contrast as well as symptoms
are 2/2 dysmotility and gastroparesis-type picture in
setting of Mounjaro use. Small bowel inflammation seen
on imaging could be due to food stasis, unable to
fully visualize mucosa. Recommend drug holiday and
repeat EGD as outpatient.
- Await pathology results. If esophageal biopsies
return positive, recommend treatment with 14 day
course of Fluconazole.
Abdominal Pain with findings of Ileus/Enteritis
Elevated Lipase
Constipation
slow gut motility in setting of Mounjaro
-appreciate GI consult
-s/p EGD with results above, findings of gastroparesis in setting of recent initiation Mounjaro
-patient ordered for gastroparesis diet
-plan for holiday from Mounjaro use
-bowel regimen - dulcolax supp and enema today
-advance to fulls
-appreciate GI
# Leukocytosis likely stress reaction
-WBC resolved off antibiotics
#chronic kidney disease state 3b
- creatinine 1.5 BUN 54
-monitor BMP in am
# Type 2 diabetes with hyperglycemia
-Glucose 424 on admit
-left message for patient's night baker, Dr. Lovett per patient's request who then got in touch with patient
-hold Mounjaro
-lantus lower dosing qhs
-hypoglycemic morning of 09/10 - stop standing aspart
#HLD
-statin and fenofibrate continued
#essential htn
-BP stable in ER
-losartan continued
#depression
-venlafaxine continued
#DVT prophylaxis
Hep subQ
#CODE status
-full code
Anticipated Discharge: 24 - 48 hours
Subjective/Interval History
-
Date of Service: September 12, 2023
still distended
less pain when eating clears
Objective Data
-
Labs:
Laboratory Results
09/12/23
04:59
WBC 6.6
Hgb 10.2 L
Hct 31.0 L
Plt Count 232
Sodium 139
Potassium 5.3 H
Chloride 105
Carbon Dioxide 31 H
BUN 20 H
Creatinine 1.0
Glucose 159 H
Calcium 9.8
Vital Signs:
Vital Signs
Temp Pulse Resp BP Pulse Ox
98.3 F 67 18 141/71 100
09/12/23 07:40 09/12/23 07:40 09/12/23 07:40 09/12/23 07:40 09/12/23 07:40
I&O
09/11/23 09/12/23 09/13/23
06:59 06:59 06:59
Intake Total 480 / 480 1280 / 1280
Balance 480 / 480 1280 / 1280
Review of Systems
-
History Source: Patient
All other systems: Reviewed and negative
Physical Exam
-
General: No Apparent Distress
HEENT: PERRLA
Respiratory: Clear to Auscultation; Negative Wheezes
Cardiac: S1/S2
GI: Distended
Musculoskeletal: No Edema
Skin: Warm and Dry; Negative Rash
Neuro: AO x 3
Psych: Calm
Data Reviewed
-
Diagnostic Radiology: Report Reviewed by me
Labs: Labs Reviewed by me
[2023-09-12 11:36] LABS: Glucose - Point of Care 223 mg/dl (70-99)
[2023-09-12] MEDS: NOVOLOG FLEXPEN-MODERATE RESISTANCE 3 UNITS SC (12:15)
--- NOTE | 2023-09-12 13:55 | CM ---
met with patient ,abdomen still distended,less pain after taking clears.advance to fulls as tolerated.plan:home with no needs.
[2023-09-12 15:22] VITALS: BP 131/70
[2023-09-12 16:36] LABS: Glucose - Point of Care 193 mg/dl (70-99)
[2023-09-12 21:22] LABS: Glucose - Point of Care 381 mg/dl (70-99)
[2023-09-12] MEDS: LANTUS 0.0800000000000000017 UNITS SC (22:02)
[2023-09-12] MEDS: NOVOLOG FLEXPEN 7 UNITS SC (22:02)
[2023-09-12] MEDS: PEPCID 20 MG IV (22:17)
[2023-09-12] MEDS: NSS (PRESERVATIVE FREE) 8 ML IV (22:18)
--- NOTE | 2023-09-12 22:30 | PTCARENOTE ---
Patients HS blood sugar 381. BARN WORKER aware and she ordered 7 units of novolog insulin to be given with patients lantus insulin.
[2023-09-12 23:02] VITALS: BP 134/71
[2023-09-13 03:27] LABS: Glucose - Point of Care 77 mg/dl (70-99)
[2023-09-13 03:59] LABS: Glucose - Point of Care 62 mg/dl (70-99)
--- NOTE | 2023-09-13 04:30 | PTCARENOTE ---
Patient awake and asked us to check her blood sugar, it was 77, we gave her apple juice. She came out about 20 minutes later and asked us to check it again, 'because she knows she is going to be lower'. We checked it again and it was 62, another cup
of apple juice given. When we rechecked after 15 minutes her blood sugar was 102. Will recheck again at 0630 as per protocol.
[2023-09-13 04:32] LABS: Glucose - Point of Care 102 mg/dl (70-99)
[2023-09-13 06:29] LABS: Glucose - Point of Care 182 mg/dl (70-99)
[2023-09-13 07:03] VITALS: BP 133/72
[2023-09-13 07:07] LABS: Hematocrit 32.1 % (37.0-47.0); Hemoglobin 10.3 g/dL (12.0-16.0); Mean Corp Hgb Conc. 32.1 g/dL (33.0-37.0); Mean Corpuscular Hgb 27.2 pg (27.0-31.0); Mean Corpuscular Volume 84.9 fL (81.0-99.0); Mean Platelet Volume 9.3 fL (7.4-10.4); Platelet Count 236 10^3/uL (130-400); Red Blood Cell Count 3.78 10^6/uL (4.20-5.40); Red Cell Dist. Width 14.5 % (11.5-14.5)
[2023-09-13 07:27] LABS: Blood Urea Nitrogen 18 mg/dl (7-17); Calcium 9.9 mg/dl (8.4-10.2); Carbon Dioxide 32 mmol/L (22-30); Chloride 100 mmol/L (98-107); Estimated Creatinine Clearance 45 ml/min; Glucose 194 mg/dl (70-99); Potassium 5.1 mmol/L (3.5-5.1); Sodium 138 mmol/L (135-145); eGFR > 60.00
[2023-09-13 08:11] LABS: Glucose - Point of Care 132 mg/dl (70-99)
[2023-09-13] MEDS: NOVOLOG FLEXPEN-MODERATE RESISTANCE SC (08:41)
[2023-09-13] MEDS: LIPITOR 80 MG PO (08:42)
[2023-09-13] MEDS: EFFEXOR XR 225 MG PO (08:42)
[2023-09-13] MEDS: TRICOR 145 MG PO (08:42)
[2023-09-13] MEDS: ASPIR LOW (ENTERIC COATED) 81 MG PO (08:42)
[2023-09-13] MEDS: COZAAR 100 MG PO (08:42)
[2023-09-13] MEDS: NEURONTIN 300 MG PO (08:42)
[2023-09-13] MEDS: HEPARIN SC ×2 (08:42→08:58)
[2023-09-13] MEDS: PROTONIX IV 40 MG IV (08:43)
[2023-09-13] MEDS: NSS (PRESERVATIVE FREE) 10 ML IV (08:43)
[2023-09-13] MEDS: FLUSH (NSS) 2 FLUSH IV (08:43)
[2023-09-13] MEDS: MIRALAX 17 GRAMS PO (08:44)
[2023-09-13 11:29] LABS: Glucose - Point of Care 229 mg/dl (70-99)
--- NOTE | 2023-09-13 12:40 | W.PN.HOSP.TC ---
Addendum entered and electronically signed by Martha Rivas MD 09/18/23 18:48:
SAIRA
-resolved
Original Note:
Today's Communication/Plan
-
DC if tolerates diabetic diet
Assessment / Plan
Assessment / Plan
63 year old with PMH fot HTN, HLD, Dm, anxiety, depression presented to us with sudden onset of sharp abdominal pain associated with distention
CT A/P
IMPRESSION:
1. Findings suggesting mild nonspecific ileus/enteritis. Otherwise no significant acute abnormality identified in the abdomen or pelvis, within the limits of unenhanced CT, as described above.
2. Lap Band noted in place. There is moderate circumferential wall thickening of the distal thoracic esophagus, likely chronic esophagitis change. Moderate gastric distention with debris.
3. Mild to moderate diffuse colonic stool burden may reflect constipation.
RUQ US
IMPRESSION:
1. No evidence of cholelithiasis, acute cholecystitis, or biliary ductal dilation.
2. Gastric band was partially visualized within the upper abdomen.
3. Pancreas was not well seen due to overlying bowel.
EGD 09/10/23
Impression: - The procedure was aborted due to copious amounts of
food in the small bowel, unable to clear.
- White specked mucosa in the esophagus. Biopsied.
- 2 cm hiatal hernia.
- A large amount of food (residue) in the stomach.
- Erythematous mucosa in the prepyloric region of the
stomach. Biopsied. Clip was placed. Clip associate professor of criminal justice:
[employer].
- Retained food in the duodenum.
Recommendation: - Return patient to hospital reich for ongoing care.
- Gastroparesis diet.
- Continue present medications.
- Suspect imaging findings, albeit, limited due to
lack of both PO and IV contrast as well as symptoms
are 2/2 dysmotility and gastroparesis-type picture in
setting of Mounjaro use. Small bowel inflammation seen
on imaging could be due to food stasis, unable to
fully visualize mucosa. Recommend drug holiday and
repeat EGD as outpatient.
- Await pathology results. If esophageal biopsies
return positive, recommend treatment with 14 day
course of Fluconazole.
Abdominal Pain with findings of Ileus/Enteritis
Elevated Lipase
Constipation
slow gut motility in setting of Mounjaro
-appreciate GI consult
-s/p EGD with results above, findings of gastroparesis in setting of recent initiation Mounjaro
-patient ordered for gastroparesis diet
-plan for holiday from Mounjaro use
-bowel regimen
-advance to diabetic --> OK for DC if tolerates
-appreciate GI
# Leukocytosis likely stress reaction
-WBC resolved off antibiotics
#chronic kidney disease state 3b
- creatinine 1.5 BUN 54
-monitor BMP in am
# Type 2 diabetes with hyperglycemia
-Glucose 424 on admit
-left message for patient's learning and development analyst, Dr. Lovett per patient's request who then got in touch with patient
-hold Mounjaro
-lantus lower dosing qhs
-resume aspart
-patient needs to follow up closely as outpatient
#HLD
-statin and fenofibrate continued
#essential htn
-BP stable in ER
-losartan continued
#depression
-venlafaxine continued
#DVT prophylaxis
Hep subQ
#CODE status
-full code
Anticipated Discharge: Within 24 hours
Subjective/Interval History
-
Date of Service: September 13, 2023
had multiple BM and wants to go home
Objective Data
-
Labs:
Laboratory Results
09/13/23
06:08
WBC 7.0
Hgb 10.3 L
Hct 32.1 L
Plt Count 236
Sodium 138
Potassium 5.1
Chloride 100
Carbon Dioxide 32 H
BUN 18 H
Creatinine 1.0
Glucose 194 H
Calcium 9.9
Vital Signs:
Vital Signs
Temp Pulse Resp BP Pulse Ox
98.7 F 70 16 133/72 99
09/13/23 07:03 09/13/23 07:03 09/13/23 07:03 09/13/23 07:03 09/13/23 07:03
I&O
09/12/23 09/13/23 09/14/23
06:59 06:59 06:59
Intake Total 1280 / 1280 1440 / 1440
Balance 1280 / 1280 1440 / 1440
Review of Systems
-
History Source: Patient
All other systems: Reviewed and negative
Physical Exam
-
General: No Apparent Distress
HEENT: PERRLA
Respiratory: Clear to Auscultation; Negative Wheezes
Cardiac: S1/S2
GI: Distended
Musculoskeletal: No Edema
Skin: Warm and Dry; Negative Rash
Neuro: AO x 3
Psych: Calm
Data Reviewed
-
Diagnostic Radiology: Report Reviewed by me
Labs: Labs Reviewed by me
[2023-09-13] MEDS: FLEET MINERAL OIL ENEMA RECTAL (12:41)
[2023-09-13] MEDS: NOVOLOG FLEXPEN-MODERATE RESISTANCE 3 UNITS SC (13:07)
--- NOTE | 2023-09-13 14:36 | W.DS.TRANS ---
DC Summary - Transcription Coordinator
-
Discharge Instructions:
Discharge Diagnosis/Procedures gastroparesis exacerbated by Mounjaro use
Diet Diabetic, Carb Controlled
Additional Diets small frequent meals
Activity As tolerated
Driving Restrictions As prior to admission
Bathing Restrictions None
Instructions:
Stand-Alone Forms:
Changes to Home Medications: Yes
Discharge Medications:
DC Medications w/original date entered in [facility]
aspirin 81 mg tablet,delayed release 81 mg PO DAILY Blood Clot Prevention/Tx 09/08/23
atorvastatin 80 mg tablet 80 mg PO DAILY High Cholesterol 09/08/23
fenofibrate 160 mg tablet 160 mg PO DAILY HIGH TRIGLYCERIDES 09/08/23
furosemide 40 mg tablet 20 - 40 mg PO DAILY PRN swelling 09/08/23
gabapentin 300 mg capsule 300 mg PO DAILY Pain 09/08/23
insulin aspart U-100 100 unit/mL (3 mL) subcutaneous pen (Novolog FlexPen U-100 Insulin aspart) 3 unit SC AC Diabetes 09/08/23
insulin degludec 100 unit/mL (3 mL) subcutaneous pen (Tresiba FlexTouch U-100 insulin) 11 unit SC HS Diabetes 09/08/23
losartan 100 mg tablet 100 mg PO DAILY Blood Pressure 09/08/23
venlafaxine 75 mg capsule,extended release 24 hr 225 mg PO DAILY Mental Health/Anxiety 09/08/23
bisacodyl 10 mg rectal suppository 10 mg [place] DAILYPRN PRN constipation #14 ea 09/13/23
pantoprazole 40 mg tablet,delayed release (Protonix) 40 mg PO BID #60 tabs 09/13/23
polyethylene glycol 3350 17 gram oral powder packet (HealthyLax) 17 g PO BID #30 ea 09/13/23
Home Medication Changes
FOR YOUR INSULIN DOSING:
Your glucose levels were elevated then dropped in the hospital. Given you will be eating less, I advise you give yourself less insulin and then gradually increase to your prior to admission doses. Continue to work with your ultrasonic tester to find
the right dosing.
Start with Lantus 6 units in evenings and Aspart 2 units pre-meals and then adjust based on blood glucose levels. Record results from AM and pre-meals and show this to your outpatient providers.
STOP MOUNJARO - this slowed the gut resulting in symptoms
Take Miralax twice a day. If you have multiple regular bowel movements you can decrease to daily. Stop if you have multiple loose stools (this may happen when Mounjaro runs out of your system).
Take Protonix twice a day for gastritis. This frequency will likely be decreased by GI. You have a follow up appointment on October 01.
Pending Results: No
--- NOTE | 2023-09-13 15:05 | W.DCSUMMARY ---
Discharge Summary
Discharge Data
Date of Admission: 09/08/23
Date of Discharge: 09/13/23
-
Pending Results: No
Hospital Course
Discharging Physician : Dr. Martha Rivas
Disposition : Home
Primary care physician :Dr. Margarita Marti
Principal Discharge diagnosis : Gastroparesis exacerbated by Mounjaro use
Hospital Course :
Ms. Dorota Malik is a 63 yo woman with hx IDDM, HTN, Anxiety who presents to the ER with sudden onset of sharp abdominal pain associated with distention. Triage vitals stable. Labs with WBC 15.8. CT A/P with e/o constipation and nonspecific
ileus/enteritis. She was admitted to medicine with GI consulting. EGD on 09/09 with finding of copious amounts of food in the small bowel. Findings suggested gastroparesis and constipation as etiology of pain, likely exacerbated in setting of
recent initiation of Mounjaro. Patient was told to stop this medication and she will be scheduled for a repeat EGD as outpatient. She was started on BID Protonix for gastritis related to food stasis. She was given an aggressive bowel regimen in
the hospital and finally had some bowel movements, able to tolerate solid food. She is eager for discharge. She is told to continue small frequent meals. She is discharged with Miralax BID and PRN Dulcolax, can also use enemas.
Patient's BGL varied greatly. She came in hyperglycemic and A1c is 9.4%. Her insulin dosing was recently lowered given episodes of hypoglycemia. She has a CGM. Given less PO intake I instructed patient to start with less insulin at home and
adjust as needed. Her insert molding operator is aware of her admission here and the stopping of Mounjaro.
Time spent on discharge was 40 minutes.
Important imaging findings :
CT A/P 09/08/23
IMPRESSION:
1. Findings suggesting mild nonspecific ileus/enteritis. Otherwise no significant acute abnormality identified in the abdomen or pelvis, within the limits of unenhanced CT, as described above.
2. Lap Band noted in place. There is moderate circumferential wall thickening of the distal thoracic esophagus, likely chronic esophagitis change. Moderate gastric distention with debris.
3. Mild to moderate diffuse colonic stool burden may reflect constipation.
RUQ US 09/09/23
IMPRESSION:
1. No evidence of cholelithiasis, acute cholecystitis, or biliary ductal dilation.
2. Gastric band was partially visualized within the upper abdomen.
3. Pancreas was not well seen due to overlying bowel.
Procedure findings :
EGD 09/10/23
Impression: - The procedure was aborted due to copious amounts of
food in the small bowel, unable to clear.
- White specked mucosa in the esophagus. Biopsied.
- 2 cm hiatal hernia.
- A large amount of food (residue) in the stomach.
- Erythematous mucosa in the prepyloric region of the
stomach. Biopsied. Clip was placed. Clip woodworking belt sander:
[facility].
- Retained food in the duodenum.
Recommendation: - Return patient to hospital reich for ongoing care.
- Gastroparesis diet.
- Continue present medications.
- Suspect imaging findings, albeit, limited due to
lack of both PO and IV contrast as well as symptoms
are 2/2 dysmotility and gastroparesis-type picture in
setting of Mounjaro use. Small bowel inflammation seen
on imaging could be due to food stasis, unable to
fully visualize mucosa. Recommend drug holiday and
repeat EGD as outpatient.
- Await pathology results. If esophageal biopsies
return positive, recommend treatment with 14 day
course of Fluconazole.
Discharge Plan
-
Patient Disposition: Home (Routine Discharge)
Discharge Diagnosis/Procedures: gastroparesis exacerbated by Mounjaro use
Diet: Diabetic, Carb Controlled
Additional Diets: small frequent meals
Activity: As tolerated
Driving Restrictions: As prior to admission
Bathing Restrictions: None
Referrals:
Becker,Shazia, EVAPORATOR OPERATOR [employer]OL[employer]ES [Specified Professional Personl] - 10/02/23 11:30 am
Margarita Marti MD [Family Provider] - in less than 1 week
Additional Discharge Medication Instructions: FOR YOUR INSULIN DOSING:
Your glucose levels were elevated then dropped in the hospital. Given you will be eating less, I advise you give yourself less insulin and then gradually increase to your prior to admission doses. Continue to work with your insert molding operator to find
the right dosing.
Start with Lantus 6 units in evenings and Aspart 2 units pre-meals and then adjust based on blood glucose levels. Record results from AM and pre-meals and show this to your outpatient providers.
STOP MOUNJARO - this slowed the gut resulting in symptoms
Take Miralax twice a day. If you have multiple regular bowel movements you can decrease to daily. Stop if you have multiple loose stools (this may happen when Mounjaro runs out of your system).
Take Protonix twice a day for gastritis. This frequency will likely be decreased by GI. You have a follow up appointment on October 01.
Prescriptions:
New
bisacodyl 10 mg Suppository
10 mg [place] DAILYPRN PRN (Reason: constipation) Qty: 14 0RF
polyethylene glycol 3350 [HealthyLax] 17 gram Powder In Packet
17 g PO BID Qty: 30 0RF
Rx Instructions:
Can decrease to daily if regular bowel movements and hold for loose stools.
pantoprazole [Protonix] 40 mg tablet,delayed release (DR/EC)
40 mg PO BID Qty: 60 0RF
Continued
furosemide 40 mg tablet
20 - 40 mg PO DAILY PRN (Reason: swelling)
atorvastatin 80 mg tablet
80 mg PO DAILY
venlafaxine 75 mg capsule,extended release 24hr
225 mg PO DAILY
aspirin 81 mg Tablet,Delayed Release (Dr/Ec)
81 mg PO DAILY
gabapentin 300 mg capsule
300 mg PO DAILY
losartan 100 mg tablet
100 mg PO DAILY
insulin aspart U-100 [Novolog FlexPen U-100 Insulin] 100 unit/mL (3 mL) insulin pen
3 unit SC AC
insulin degludec [Tresiba FlexTouch U-100] 100 unit/mL (3 mL) insulin pen
11 unit SC HS
fenofibrate 160 mg Tablet
160 mg PO DAILY
Patient Comments:
09/08/2023: Per 24hr [facility] last filled 05/23/22 and no refills
Discontinued
Mounjaro 2.5 mg/0.5 mL pen injector
2.5 mg SC JUAN
Discharge Orders:
Discharge Patient (As Directed); Ordered 09/13/23
Ordered By: Martha Rivas
Discharge Date and Time
Print Language: DJIBOUTIAN
[2023-09-13 15:20] VITALS: BP 133/79
--- NOTE | 2023-09-13 15:40 | CM ---
CM met with pt and dtr bedside
Discharge order noted
IMM verbally reviewed-copy provided
Discharge Disposition- home, no needs-family transport
--- NOTE | 2023-09-23 07:42 | PN.CDI ---
CDI
- -
CDI:
Physician Documentation Request
Admit Date: 09/08/23 21:36
Dear Doctor Maikol,
Clinical Indicators:
The diagnosis of acute pancreatitis was documented on 09/08, but is not consistently noted in subsequent documentation.
09/08 GI consult, 'RUQ Abdominal Pain + Elevated Lipase meets clinical criteria for Acute Pancreatitis.'
09/09 EGD Report, '...Suspect imaging findings, albeit, limited due to ack of both PO and IV contrast as well as symptoms are 2/2 dysmotility and gastroparesis-type picture setting of Mounjaro use.... Small bowel inflammation seen on imaging could
be due to food stasis, unable to fully visualize mucosa'
Lipase levels:
09/08/23 09/09/23 09/10/23
18:00 07:28 05:28
Lipase 849 H 1631 H* 183
Please clarify the following:
Acute pancreatitis is still a likely, suspected, probable diagnosis (please indicate if present on admission)
Acute pancreatitis was ruled out.
Other, please specify
Use of terms such as suspected, likely, concern for, or probable (associated with a specific diagnosis that is being evaluated, monitored, or treated as if it exists) are acceptable and can be coded in the inpatient setting, when documented at the
time of discharge.
Thank you,
MACKENZIE Andrews RN
CDI Specialist
available via tiger text
Please use your independent medical judgment in providing your response.
== END 2023-09-13 15:45 | disposition home or self-care (01) | DRG 982 ==
LOC: 4 EAST ACU 21:36
PROVIDERS: Nurse Practitioner; Registered Nurse; ADMITTING PHYSICIAN Hospitalist; ATTENDING PHYSICIAN Student in an Organized Health Care Education/Training Program; EMERGENCY PHYSICIAN Emergency Medicine; FAMILY PHYSICIAN Internal Medicine; OTHER PHYSICIAN Internal Medicine
PROC: 0D968ZZ Drainage of Stomach, Via Natural or Artificial Opening Endoscopic (ICD-10-PCS; 2023-09-10)
PROC: 0DB38ZX Excision of Lower Esophagus, Via Natural or Artificial Opening Endoscopic, Diagnostic (ICD-10-PCS; 2023-09-10)
PROC: 0W3P8ZZ Control Bleeding in Gastrointestinal Tract, Via Natural or Artificial Opening Endoscopic (ICD-10-PCS; 2023-09-10)
PROC: 0DB28ZX Excision of Middle Esophagus, Via Natural or Artificial Opening Endoscopic, Diagnostic (ICD-10-PCS; 2023-09-10)
PROC: 0DB68ZX Excision of Stomach, Via Natural or Artificial Opening Endoscopic, Diagnostic (ICD-10-PCS; 2023-09-10)
DX: E11.43 Type 2 diabetes mellitus with diabetic autonomic (poly)neuropathy (principal); K56.7 Ileus, unspecified; N17.9 Acute kidney failure, unspecified; K31.84 Gastroparesis; E11.22 Type 2 diabetes mellitus with diabetic chronic kidney disease; E11.65 Type 2 diabetes mellitus with hyperglycemia; E78.00 Pure hypercholesterolemia, unspecified; F41.9 Anxiety disorder, unspecified; K52.9 Noninfective gastroenteritis and colitis, unspecified; K20.90 Esophagitis, unspecified without bleeding; E78.1 Pure hyperglyceridemia; N18.9 Chronic kidney disease, unspecified; K31.89 Other diseases of stomach and duodenum; K44.9 Diaphragmatic hernia without obstruction or gangrene; K22.89 Other specified disease of esophagus; T50.995A Adverse effect of other drugs, medicaments and biological substances, initial encounter; Y92.9 Unspecified place or not applicable; F32.A Depression, unspecified; E11.649 Type 2 diabetes mellitus with hypoglycemia without coma; I12.9 Hypertensive chronic kidney disease with stage 1 through stage 4 chronic kidney disease, or unspecified chronic kidney disease; Z79.4 Long term (current) use of insulin; Z79.85 Long-term (current) use of injectable non-insulin antidiabetic drugs; Z79.82 Long term (current) use of aspirin; Z88.5 Allergy status to narcotic agent; Z91.040 Latex allergy status; Z90.49 Acquired absence of other specified parts of digestive tract
CPT/HCPCS: 88305; 88312; 74176; 76700; 80048; 80053; 81003; 81015; 82010; 82247; 82962; 83036; 83605; 83690; 84075; 84450; 84460; 85025; 85027; 87086; 88342; 93005; 96374; 96375; 96376; 99285